=== PATIENT | male | born 1995 | race African-American/Black ===

== ENCOUNTER 2016-04-03 19:07 | Emergency (ER) | payer MEDICAID, OTHER ==
[~2016-04-03] VITALS: Ht 177.8 cm; Wt 78.5 kg
[~2016-04-03 19:07] MED LIST: CEPH-443 PO; HYDR-3498 PO; IBUP800T25 PO; NAPR-638
[2016-04-03 19:50] VITALS: Ht 177.8 cm; Wt 78.5 kg
--- NOTE | 2016-04-03 22:38 | RADRPT ---
PROCEDURE: XR Lumbar Spine. CLINICAL INDICATION: Pain. TECHNIQUE: X-ray of the lumbar spine were performed including AP, lateral, and coned L5-S1 views w as performed. COMPARISON: No prior studies are available for comparison. FINDINGS: Vertebral body stature and alignment maintained. There is no evidence of fracture or subluxation. IMPRESSION: No evidence of compression fracture. RPTAT: HIKT .Alexi Florez MD, MD Date Time Electronically viewed and signed by .Alexi Florez MD, on 04/03/2016 22:38 .T/
--- NOTE | 2016-04-03 22:41 | RADRPT ---
PROCEDURE: XR tibia / fibula. CLINICAL INDICATION: Trauma. TECHNIQUE: AP and lateral views of the right tibia/fibula were performed. COMPARISON: There are no similar studies submitted for comparison. FINDINGS: There is normal bone mineralization.There is no acute fracture or dislocation.No osseous lesion is i dentified. IMPRESSION: No acute fracture or subluxation. RPTAT: HIKT .Alexi Florez MD, MD Date Time Electronically viewed and signed by .Alexi Florez MD, on 04/03/2016 22:40 .T/
[2016-04-03] MEDS ORDERED: BACITUD TOP (22:55)
[2016-04-03] MEDS ORDERED: NAPR-260 PO (22:56)
[2016-04-03] MEDS ORDERED: BACITRACIN 0.9 GM OINT TOP ONE (23:00)
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
== END 2016-04-03 23:13 | disposition home or self-care (01) ==
LOC: FTE 19:07
DX: S80.811A Abrasion, right lower leg, initial encounter (principal); S30.810A Abrasion of lower back and pelvis, initial encounter; W22.8XXA Striking against or struck by other objects, initial encounter; Y92.9 Unspecified place or not applicable
CPT/HCPCS: 72100; 73590; Z7610